=== PATIENT | male | born 1980 | race Caucasian/White ===

== ENCOUNTER → 2017-08-14 | Outpatient (CLI) | payer OTHER ==
--- NOTE | 2017-08-14 10:19 | DIAGNOSTIC IMAGING REPORT ---
L HIP UNILATERAL 2 VIEWS CLINICAL HISTORY: 37 years-old Male presenting with FOREIGN BODY, pain in the posterior thigh, marker placed at the site of an abrasion. TECHNIQUE: Frontal and frog-leg lateral views of the left hip were obtained. COMPARISON: None. FINDINGS: A BB marker is evident along the posterior thigh at the level of the proximal diaphysis of the left femur. No subjacent radiopaque foreign body is evident. The left hip joint is congruent. The left femur is normal. No acute fracture or malalignment. IMPRESSION: No radiopaque foreign body at the site of clinical interest. If there is continuing clinical concern, ultrasound is more sensitive for nonradiopaque foreign bodies, especially the superficial location. Electronically signed by: Diogenes Rainey M.D. 08/14/2017 10:18 AM Dictated Date/Time: 08/14/2017 10:17 AM
== END | disposition home or self-care (01) ==
LOC: C.RAD1850 10:04
PROVIDERS: ATTEND Nurse Practitioner Family
DX: S70.352A Superficial foreign body, left thigh, initial encounter (principal); X58.XXXA Exposure to other specified factors, initial encounter